=== PATIENT | female | born 1985 ===

== ENCOUNTER 2022-04-25 19:52 | Emergency (ER) | payer OTHER ==
[~2022-04-25] VITALS: Ht 167.6 cm; Wt 47.6 kg
[2022-04-26] MEDS ORDERED: ONDANSETRON ODT4 MG PO (06:59)
[2022-04-26] MEDS ORDERED: PEPCID40 MG PO (06:59)
== END 2022-04-26 07:10 ==
LOC: ER 19:52
DX: F10.129 Alcohol abuse with intoxication, unspecified (principal); R51.9 Headache, unspecified; R11.10 Vomiting, unspecified; E86.0 Dehydration; B34.9 Viral infection, unspecified; K29.70 Gastritis, unspecified, without bleeding; Z88.0 Allergy status to penicillin; Z20.822 Contact with and (suspected) exposure to COVID-19